=== PATIENT | female | born 1985 | race Caucasian/White ===

== ENCOUNTER 2017-11-16 11:10 | Emergency (ER) | payer OTHER, MEDICAID ==
[~2017-11-16] VITALS: Ht 160 cm; Wt 81.7 kg
[~2017-11-16 11:10] MED LIST: ADDERALL 20 MG20 M1 PO; BACTRIM DS TAB1 EACH PO; CLONAZEPAM 1 MG1 M1 PO; IBUPROFEN 800800 M1 PO; MACROBID 100 M100 M1 PO; METFORMIN HCL500 MG PO; NEURONTIN250 MG/5 M PO; NORCO 5-325 TA1 EAC1 PO; NORCO 5-325 TA1 EACH PO; OXYCODONE HCL 55 MG PO; PHENERGAN 25 MG25 M1 PO; PYRIDIUM100 M1 PO; VICOPROFEN 2001 EACH PO; VISTARIL 25 MG25 M1 PO; XANAX 0.5 MG0.5 M1 PO; ZPAK PO
[2017-11-16 11:17] VITALS: BP 135/81
[2017-11-16] MEDS ORDERED: CLONAZEPAM 0.50.5 M1 PO (11:20)
[2017-11-16] MEDS ORDERED: HYDROCHLOROTHIA25 M2 PO (11:20)
[2017-11-16] MEDS ORDERED: VICTOZA0.6 MG/0.1 SUBQ (11:21)
[2017-11-16] MEDS ORDERED: GLIPIZIDE 10 MG10 MG PO (11:21)
[2017-11-16] MEDS ORDERED: SUBOXONE 12 MG1 EACH TRANSDERM (11:21)
[2017-11-16] MEDS ORDERED: ZYRTEC 10 MG TA10 MG PO (11:23)
[2017-11-16] MEDS ORDERED: PREDNISONE 20 M20 M1 PO (11:23)
== END 2017-11-16 11:33 | disposition home or self-care (01) ==
LOC: M.ERS 11:10
DX: T78.40XA Allergy, unspecified, initial encounter (principal); X58.XXXA Exposure to other specified factors, initial encounter; F90.9 Attention-deficit hyperactivity disorder, unspecified type; Z88.0 Allergy status to penicillin; Z88.1 Allergy status to other antibiotic agents

== ENCOUNTER 2018-10-23 12:02 | Emergency (ER) | payer OTHER, MEDICAID ==
[~2018-10-23] VITALS: Ht 160 cm; Wt 97.5 kg
[~2018-10-23 12:02] MED LIST changes: +CLONAZEPAM 0.50.5 M1 PO; +GLIPIZIDE 10 MG10 MG PO; +HYDROCHLOROTHIA25 M2 PO; +PREDNISONE 20 M20 M1 PO; +SUBOXONE 12 MG1 EACH TRANSDERM; +VICTOZA0.6 MG/0.1 SUBQ; +ZYRTEC 10 MG TA10 MG PO
[2018-10-23] MEDS ORDERED: GLIPIZIDE 10 MG10 MG PO (12:21)
[2018-10-23] MEDS ORDERED: BYDUREON P2 MG/0.65 SUBQ (12:22)
[2018-10-23] MEDS ORDERED: KLONOPIN1 MG PO (12:22)
[2018-10-23] MEDS ORDERED: LIPITOR10 MG PO (12:23)
[2018-10-23] MEDS ORDERED: KEFLEX500 M1 PO (13:02)
[2018-10-23 13:22] VITALS: BP 121/70
== END 2018-10-23 13:23 | disposition home or self-care (01) ==
LOC: M.ERS 12:02
DX: J02.9 Acute pharyngitis, unspecified (principal); N80.9 Endometriosis, unspecified; F32.9 Major depressive disorder, single episode, unspecified; F90.9 Attention-deficit hyperactivity disorder, unspecified type; F41.9 Anxiety disorder, unspecified; G89.29 Other chronic pain; Z88.0 Allergy status to penicillin; Z88.1 Allergy status to other antibiotic agents

== ENCOUNTER 2019-04-13 13:28 | Emergency (ER) | payer OTHER, MEDICAID ==
[~2019-04-13] VITALS: Ht 160 cm; Wt 77.1 kg
[~2019-04-13 13:28] MED LIST changes: +BYDUREON P2 MG/0.65 SUBQ; +KEFLEX500 M1 PO; +KLONOPIN1 MG PO; +LIPITOR10 MG PO
[2019-04-13] MEDS ORDERED: TRULICITY0.75 MG/0. IM (13:49)
[2019-04-13] MEDS ORDERED: PHENTERMINE H37.5 MG PO (13:50)
[2019-04-13] MEDS ORDERED: IBUPROFEN 800800 M1 PO (13:51)
[2019-04-13] MEDS ORDERED: [UNRECOGNIZED DRUG - OTHER] PO (13:51)
[2019-04-13] MEDS ORDERED: PHENERGAN 25 MG25 M1 PO (13:52)
[2019-04-13] MEDS ORDERED: FLONASE 0.05%50 MCG NASAL (14:02)
[2019-04-13] MEDS ORDERED: HYDROCODON-ACE1 EAC7 PO (14:38)
[2019-04-13] MEDS ORDERED: KEFLEX500 M1 PO (14:38)
[2019-04-13 15:02] VITALS: BP 154/95
== END 2019-04-13 15:04 | disposition home or self-care (01) ==
LOC: M.ERS 13:28
DX: J02.9 Acute pharyngitis, unspecified (principal); K02.9 Dental caries, unspecified; F32.9 Major depressive disorder, single episode, unspecified; F90.9 Attention-deficit hyperactivity disorder, unspecified type; F41.9 Anxiety disorder, unspecified; F95.2 Tourette's disorder; G89.29 Other chronic pain; N80.9 Endometriosis, unspecified; Z88.1 Allergy status to other antibiotic agents; Z88.0 Allergy status to penicillin; Z85.9 Personal history of malignant neoplasm, unspecified

== ENCOUNTER 2019-04-26 17:26 | Emergency (ER) | payer OTHER, MEDICAID ==
[~2019-04-26] VITALS: Ht 160 cm; Wt 81.7 kg
[~2019-04-26 17:26] MED LIST changes: +FLONASE 0.05%50 MCG NASAL; +HYDROCODON-ACE1 EAC7 PO; +PHENTERMINE H37.5 MG PO; +TRULICITY0.75 MG/0. IM; +[UNRECOGNIZED DRUG - OTHER] PO
[2019-04-26 18:06] LABS: URINE BILIRUBIN NEGATIVE (Negative); URINE BLOOD 3+ (Negative); URINE COLOR YELLOW; URINE GLUCOSE-RANDOM 3+ (Negative); URINE KETONES NEGATIVE (Negative); URINE LEUKOCYTES-REFLEX 1+ (Negative); URINE PROTEIN 2+ (Negative); URINE UROBILINOGEN 0.2 E.U./dl (0.2-1.0)
[2019-04-26 18:08] LABS: URINE CLARITY CLOUDY; URINE NITRITE-REFLEX POSITIVE (Negative)
[2019-04-26 18:15] LABS: BACTERIA-REFLEX >30 Many /HPF (None Seen); CASTS None Seen /LPF (None Seen); CRYSTALS None Seen /LPF (None Seen); SQUAMOUS NONE SEEN /LPF (0-3); URINE RBC >20 Many /HPF (0-2); URINE WBC-REFLEX >25 Many /HPF (0-5)
[2019-04-26 18:33] LABS: ABSOLUTE BASOPHILS 0.1 thou/uL (0.0-0.2); ABSOLUTE LYMPHOCYTES 1.7 thou/uL (0.8-5.3); ABSOLUTE MONOCYTES 0.7 thou/uL (0.0-1.2); ABSOLUTE NEUTROPHILS 12.5 thou/uL (1.6-8.1); BASOPHILS 0.6 %; EOSINOPHILS 0.1 %; HEMATOCRIT 40.3 % (37.0-47.0); HEMOGLOBIN 13.7 gm/dL (12.0-15.0); LYMPHOCYTES 11.6 %; MCH 30.1 pg (26.0-34.0); MCHC 33.9 g/dL (28.0-37.0); MCV 88.5 fL (80.0-100.0); MONOCYTES 4.6 %; NUCLEATED RBCS 0 /100WBC; PLATELET COUNT* 323 thou/uL (150-400); POLYS 83.1 %; RBC 4.56 mil/uL (4.20-5.00); WBC 15.1 thou/uL (4.0-11.0)
[2019-04-26 18:43] LABS: CALCIUM 9.1 mg/dL (8.5-10.1); CREATININE 1.1 mg/dL (0.6-1.3)
[2019-04-26 18:48] LABS: TOTAL BILIRUBIN 1.1 mg/dL (<0.1-1.0); TOTAL PROTEIN 7.3 g/dL (6.4-8.2)
[2019-04-26] MEDS ORDERED: ZOVIRAX30 GM TOP (19:00)
[2019-04-26] MEDS ORDERED: CIPRO500 M1 PO (19:00)
[2019-04-26] MEDS ORDERED: ACYCLOVIR 800800 MG PO (19:00)
[2019-04-26] MEDS ORDERED: NABUMETONE 750750 M1 PO (19:22)
[2019-04-26] MEDS ORDERED: CITRATE OF MAG296 ML PO (19:22)
[2019-04-26 19:35] VITALS: BP 147/74
== END 2019-04-26 19:37 | disposition home or self-care (01) ==
LOC: M.ERS 17:26
PROVIDERS: Nurse Practitioner Family
DX: N39.0 Urinary tract infection, site not specified (principal); K59.00 Constipation, unspecified; N90.89 Other specified noninflammatory disorders of vulva and perineum; N80.9 Endometriosis, unspecified; F32.9 Major depressive disorder, single episode, unspecified; F90.9 Attention-deficit hyperactivity disorder, unspecified type; F41.9 Anxiety disorder, unspecified; E28.2 Polycystic ovarian syndrome; G89.29 Other chronic pain; F95.2 Tourette's disorder; Z85.44 Personal history of malignant neoplasm of other female genital organs; Z88.0 Allergy status to penicillin; Z88.1 Allergy status to other antibiotic agents

== ENCOUNTER 2019-09-30 10:11 | Emergency (ER) | payer OTHER, MEDICAID ==
[~2019-09-30] VITALS: Ht 160 cm; Wt 72.6 kg
[~2019-09-30 10:11] MED LIST changes: +ACYCLOVIR 800800 MG PO; +CIPRO500 M1 PO; +CITRATE OF MAG296 ML PO; +NABUMETONE 750750 M1 PO; +ZOVIRAX30 GM TOP
[2019-09-30 12:16] LABS: ABSOLUTE LYMPHOCYTES 2.5 thou/uL (0.8-5.3); ABSOLUTE MONOCYTES 0.2 thou/uL (0.0-1.2); BASOPHILS 0.3 %; EOSINOPHILS 0.4 %; HEMATOCRIT 39.3 % (37.0-47.0); HEMOGLOBIN 13.4 gm/dL (12.0-15.0); LYMPHOCYTES 20.9 %; MCH 29.7 pg (26.0-34.0); MCHC 33.9 g/dL (28.0-37.0); MCV 87.5 fL (80.0-100.0); MONOCYTES 2.1 %; MPV 10.4 fl. (7.2-11.1); NUCLEATED RBCS 0 /100WBC; PLATELET COUNT* 312 thou/uL (150-400); POLYS 76.3 %; RBC 4.49 mil/uL (4.20-5.00); RDW-CV 13.2 % (10.5-14.5); WBC 11.8 thou/uL (4.0-11.0)
[2019-09-30 12:35] LABS: ALBUMIN 3.2 g/dL (3.4-5.0); CALCIUM 7.7 mg/dL (8.5-10.1); CREATININE 0.8 mg/dL (0.6-1.3); POTASSIUM 4.1 mmol/L (3.5-5.1); TOTAL BILIRUBIN 0.4 mg/dL (<0.1-1.0); TOTAL PROTEIN 6.5 g/dL (6.4-8.2)
[2019-09-30] MEDS ORDERED: ONDANSETRON HCL4 M2 PO (12:59)
[2019-09-30] MEDS ORDERED: ZANAFLEX4 MG PO (12:59)
[2019-09-30] MEDS ORDERED: ATIVAN0.5 M1 PO (12:59)
[2019-09-30 13:52] VITALS: BP 131/77
== END 2019-09-30 13:53 | disposition home or self-care (01) ==
LOC: M.ERS 10:11
PROVIDERS: Nurse Practitioner Family
DX: F41.9 Anxiety disorder, unspecified (principal); R11.2 Nausea with vomiting, unspecified; G89.29 Other chronic pain; N80.9 Endometriosis, unspecified; F32.9 Major depressive disorder, single episode, unspecified; F90.9 Attention-deficit hyperactivity disorder, unspecified type; Z88.1 Allergy status to other antibiotic agents; Z88.0 Allergy status to penicillin

== ENCOUNTER 2020-01-27 23:54 | Inpatient (IN) | payer OTHER, MEDICAID ==
[~2020-01-27] VITALS: Ht 160 cm; Wt 84.4 kg
[~2020-01-27 23:54] MED LIST changes: +ATIVAN0.5 M1 PO; +ONDANSETRON HCL4 M2 PO; +ZANAFLEX4 MG PO
[2020-01-27 23:55] VITALS: BP 170/87
[2020-01-28 00:49] LABS: ABSOLUTE BASOPHILS 0.1 thou/uL (0.0-0.2); ABSOLUTE EOSINOPHILS 0.1 thou/uL (0.0-0.7); ABSOLUTE LYMPHOCYTES 3.4 thou/uL (0.8-5.3); ABSOLUTE MONOCYTES 0.6 thou/uL (0.0-1.2); ABSOLUTE NEUTROPHILS 5.7 thou/uL (1.6-8.1); BASOPHILS 0.6 %; EOSINOPHILS 1.5 %; HEMOGLOBIN 13.8 gm/dL (12.0-15.0); MCH 30.1 pg (26.0-34.0); MCHC 34.5 g/dL (28.0-37.0); MCV 87.3 fL (80.0-100.0); MONOCYTES 6.3 %; MPV 10.5 fl. (7.2-11.1); NUCLEATED RBCS 0 /100WBC; PLATELET COUNT* 404 thou/uL (150-400); POLYS 57.6 %; RBC 4.58 mil/uL (4.20-5.00); RDW-CV 13.4 % (10.5-14.5)
[2020-01-28 01:28] LABS: CALCIUM 8.9 mg/dL (8.5-10.1); CREATININE 1.2 mg/dL (0.6-1.3); POTASSIUM 3.9 mmol/L (3.5-5.1)
[2020-01-28 01:33] LABS: ALBUMIN 3.4 g/dL (3.4-5.0); TOTAL BILIRUBIN 0.8 mg/dL (<0.1-1.0); TOTAL PROTEIN 8.1 g/dL (6.4-8.2)
[2020-01-28 01:59] LABS: URINE BILIRUBIN NEGATIVE (Negative); URINE BLOOD TRACE (Negative); URINE CLARITY CLEAR; URINE COLOR STRAW; URINE GLUCOSE-RANDOM 3+ (Negative); URINE KETONES NEGATIVE (Negative); URINE LEUKOCYTES-REFLEX NEGATIVE (Negative); URINE NITRITE-REFLEX NEGATIVE (Negative); URINE PROTEIN NEGATIVE (Negative); URINE SPECIFIC GRAVITY <= 1.005 (1.005-1.030); URINE UROBILINOGEN 0.2 E.U./dl (0.2-1.0)
[2020-01-28 02:06] LABS: AMP/METHAMP POSITIVE (Negative); BARBITURATES Negative (Negative); BENZODIAZEPINES Negative (Negative); COCAINE Negative (Negative); METHADONE Negative (Negative); OPIATES Negative (Negative); PCP Negative (Negative); THC Negative (Negative)
[2020-01-28 04:45] VITALS: BP 139/83
--- NOTE | 2020-01-28 05:46 | NUR ---
PATIENT ARRIVED FROM ER TO ROOM 101. PT SPEAKS CONSTANTLY AND SWIFTLY AND IS UNABLE TO ANSWER QUESTIONS DIRECTED TO HER. PT IS POOR HISTORIAN. PT SAID SHE WANTS TO TAKE ANTIBIOTICS TODAY AND WANTS TO GO HOME TOMORROW. PT UP FROM ER WITH A SANDWICH IN HAND ASKING FOR A BOXED LUNCH BEFORE GETTING OF CART AND IN BED. PT UNABLE TO FOLLOW SIMPLE COMMANDS. ASSESSMENT COMPLETED BUT INFORMATION PT GAVE KEPT CHANGING QUICKLY. PT ORIENTED TO ROOM/POLICIES. WILL CONTINUE TO MONITOR.
[2020-01-28 07:35] VITALS: BP 152/94
--- NOTE | 2020-01-28 17:08 | NUR ---
PT.SLEEPING SOUNDLY WHEN CM WENT IN TO SEE HER. DID NOT AWAKEN. HAD TELE PSYCH CONSULT THIS AFTERNOON AND RECOMMENDATIONS AND REPORT ON CHART. ROXANE HUNG WILL NOTIFY OF RECOMMENDATIONS. CM WILL SEE PT.IN AM.
--- NOTE | 2020-01-28 17:51 | NUR ---
PT A&OX4 VSS. PT UP AD NANETTE, GAIT STEADY. PT ACCUCHECK, BUT CONTINUES TO REFUSE INSULIN THIS SHIFT. PT CLONAZEPAM DOSAGE ADJUSTED BY DR MALDONADO. IV TO R WRIST PATENT, REINFORCED WITH COBAN. RECORDS REQUESTED FROM [facility], PAPERWORK PLACED TO FRONT OF PT CHART. TELE-PSYCH CONSULT THIS SHIFT WELL, THIS REPORT ALSO PLACED TO FRONT OF PT CHART. DR MALDONADO PAGES TO INFORM HER THAT THESE REPORTS HAD ARRIVED. THIS PT CONTINUES TO BE HYPERVERBAL. PT CONTINUES TO REQUEST MORE FOOD, PT WANTS TO GO TO [employer] MACHINE, BUT PT RE-EDUCATED REGARDING INFECTION CONTROL. PT INITIALLY REFUSED HAVING HER WOUNDS DRESSED. PT EDUCATED REGARDING INFECTION CONTROL AT THIS TIME WELL. PT ASKED IF SHE COULD LEAVE FOR A LITTLE WHILE AND JUST COME BACK, PT WAS INFORMED THIS WAS AGAINST HOSPITAL POLICY AND WOULD BE CONSIDERED LEAVING AMA. IV ABX TX CONTINUES, WOUND CARE AND ID CONSULTED. PT SLEEPING WHEN DINNER ARRIVES, THIS NURSE WOKE PT WITH SOME DIFFICULTY FOR PT TO EAT AND TAKE EVENING MEDICATION. PT EVENTUALLY BECAME MORE ALERT AND SAT UP TO EAT. PT RESTS IN ROOM WITH CALL LIGHT IN REACH. WILL CONTINUE TO MONITOR.
[2020-01-28 20:00] VITALS: BP 94/61
[2020-01-29] VITALS: BP 103/57
--- NOTE | 2020-01-29 04:25 | NUR ---
PATIENT LETHARGIC ENTIRE SHIFT UNTIL ABOUT 0300 WHEN LAB CAME TO DRAW BLOOD. PT WOULD OPEN EYES AND MAKE YES/NO RESPONSE THEN GO BACK TO SLEEP. PT IS NOW AWAKE ASKING FOR FOOD. PT IS IMPULSIVE BUT USING CALL LIGHT APPROPRIATELY. PT UP WITH STANDBY TO BATHROOM. ANTIBIOTICS INFUSING PER DR ORDER. FREQUENTLY USED ITEMS AND CALL LIGHT WITHIN REACH. SIDERAILS UPX3 AND BED ALARM ON.
[2020-01-29 07:50] VITALS: BP 104/66
[2020-01-29 08:12] LABS: HEMATOCRIT 34.1 % (37.0-47.0); MCH 29.8 pg (26.0-34.0); MCHC 33.9 g/dL (28.0-37.0); MCV 87.9 fL (80.0-100.0); MPV 10.2 fl. (7.2-11.1); RBC 3.88 mil/uL (4.20-5.00); RDW-CV 13.5 % (10.5-14.5); WBC 9.5 thou/uL (4.0-11.0)
[2020-01-29 08:14] LABS: HEMOGLOBIN 11.5 gm/dL (12.0-15.0)
[2020-01-29 08:41] LABS: ALBUMIN 2.6 g/dL (3.4-5.0); CALCIUM 7.9 mg/dL (8.5-10.1); CREATININE 0.9 mg/dL (0.6-1.3); MAGNESIUM 1.8 mg/dL (1.8-2.4); POTASSIUM 3.7 mmol/L (3.5-5.1); TOTAL BILIRUBIN 0.4 mg/dL (<0.1-1.0); TOTAL PROTEIN 6.5 g/dL (6.4-8.2)
--- NOTE | 2020-01-29 10:00 | NUR ---
Nutrition: Pt admitted with wounds on LE. Seen for wounds. H/o ADHD, DM noncompliance with meds, tourettes. CHO controlled diet ordered. Pt eating 100% with good appetite, asking for extra food. Wt is at usual, 186#. BG 168, albumin 2.6. RX: glipizide, vanc. Purulent wound on LE. RD will order Kamran for wound healing. Otherwise, mild nutrition risk.
--- NOTE | 2020-01-29 10:35 | CON ---
[address] [address] CONSULTATION Name: SAULOLUIS Akshat Room: [address] IN ..#: [id number] Admission: 01/28/20 Attend Phys: Cuco Rae MD Discharge: Date of : 83 Report #: [id number] THIS REPORT FOR: //name// cc: Physician not on staff Physician not on staff ~ THIS REPORT FOR: //name// CC: VINI Rae Physician staff DATE OF SERVICE: 01/28/2020 INFECTIOUS DISEASE CONSULTATION ATTENDING PHYSICIAN: Dr. Smith. REASON FOR EVALUATION: Bilateral lower extremity wounds complicated by infection, also cellulitic type process. HISTORY OF PRESENT ILLNESS: Chart reviewed, patient examined. This is a 34-year-old who has got a fairly significant history given her age, apparently has some history of Tourette's, anxiety, polycystic ovary syndrome and diabetes mellitus. It is difficult to ascertain details of her history. She is quite verbal and tends to be somewhat tangential. When redirected, she does admit to bilateral lower extremity pain. She believes this started within the last hours to day prior to admission. It is unclear whether she had an injury. Notes, she thinks it was worsened with soaking of Epsom salts and questioned whether she was bitten by a spider as well. She notes that she has opposed to take insulin. She does take Trulicity, but has been out though. On initial evaluation, she has a negative test. Lactic acid was mildly elevated at 2.8. She has been empirically started on therapy with ceftriaxone, vancomycin. She denies significant systemic illness, no fevers. She states her appetite has generally been good. No pulmonary or gastrointestinal related complaints. ALLERGIES: PENICILLINS, CEPHALOSPORINS, MACROLIDES. CURRENT MEDICATIONS: Include atorvastatin, enoxaparin, vancomycin, levetiracetam, glipizide, hydrochlorothiazide, famotidine, ceftriaxone, tizanidine, fluconazole, ibuprofen, p.r.n. analgesics. Apparently is refusing the insulin. PAST MEDICAL HISTORY: As described above, endometriosis, history of anxiety, depression, ADHD, Tourette's, polycystic ovary syndrome, gastritis, history of seizures, [place] [address] CONSULTATION Name: LUIS VERNON Room: [address]#: [id number] Admission: 01/28/20 Attend Phys: Cuco Rae MD Discharge: Date of : 83 Report #: [id number] SOCIAL HISTORY: Otherwise, unrevealing. FAMILY HISTORY: Noncontributory. REVIEW OF SYSTEMS: As above, otherwise unremarkable. PHYSICAL EXAMINATION: GENERAL: She is hyperverbal, she continuously speaks, appears reasonably well nourished. She has mild distress. VITAL SIGNS: Temperature 98.3, pulse 97, respirations 16, blood pressure 139/83. SKIN: Warm, dry, no rashes. HEENT: Normocephalic. Extraocular muscles intact. NECK: Supple. LUNGS: Generally clear to auscultation. Somewhat diminished. HEART: Regular. Borderline tachycardic. I do not appreciate murmur. ABDOMEN: Obese, soft, nontender. There are no peritoneal signs. EXTREMITIES: Bilateral lower extremity has dressings in place. I did review the photographs taken in the chart. GENITOURINARY: Deferred. RECTAL: Deferred. LABORATORY DATA: CBC: White count of 10.0, H and H 13.8 and 40.0, platelets of 404. Electrolytes: Sodium 134, potassium 3.9, chloride 100, bicarbonate 25, anion gap of 9, BUN and creatinine 14 and 1.2, glucose of 308. LFTs unremarkable. Albumin of 3.4. Total protein of 8.1, estimated GFR of 51. Lactic acid of 2.8. ECG qualitative is negative. Urinalysis otherwise unremarkable. Positive drug screen for amphetamine, methamphetamine. Ankle x-ray showed no acute fracture and tib-fib showed some soft tissue swelling without fracture. Blood cultures sterile thus far. Lactic acid of 2.0, down from 2.8. ASSESSMENT AND PLAN: Bilateral lower extremity wounds. The patient with uncontrolled diabetes mellitus. Certainly, there is an inflammatory component. We will continue empiric antimicrobial therapy, try to collect a culture if possible. Wound care as prescribed. I worry given her opposition to insulin that diabetes will continue to be uncontrolled and the lead to additional complications, both infectious as well as noninfectious. Noted, Psychiatry had been consulted to see if there is some interventions that could be helpful. Continue to monitor expectantly. <ELECTRONICALLY SIGNED> By: Khari Bello MD 01/29/20 1035 [id number] Bello MD /nt
[2020-01-29 15:42] VITALS: BP 136/84
--- NOTE | 2020-01-29 17:50 | NUR ---
SPOKE WITH PT. SHE WAS ALERT AND ORIENTED. STATED SHE HAS A ROOMATE AND BOYFRIEND THAT SHE LIVES WITH IN A [place]. SHE HAS A CANE THAT SHE USES AT TIMES. SHE SEES FOR PSYCHIATARY AT [facility]. HX OF NON COMPLIANCE. MEETING CUT SHORT PT.HAD TO GET UP TO BATHROOM. SHE PLANS TO RETURN HOME AT DISCHARGE.
--- NOTE | 2020-01-29 18:41 | NUR ---
PATIENT RESTING IN BED. PATIENT IS UP AD NANETTE IN ROOM. PATIENT REFUSED DRESSINGS TO WOUNDS BY THIS NURSE AND WOUND CARE NURSE. PATIENT HAS COMPLAINTS OF PAIN WITH PARTIAL RELIEF OF PAIN WITH MEDICATION. PATIENT HAS GOOD APPETITE. PATIENT DENIES ANY NEEDS AT THIS TIME. CALL LIGHT WITHIN REACH.
--- NOTE | 2020-01-30 03:56 | NUR ---
PATIENT SLEPT ENTIRE SHIFT. PT STIRS EASILY AND ANSWERS APPROPRIATELY. PT REFUSED NEW IV ON DAY SHIFT AND NEW IV STARTED AROUND 0300 BY [employer]. PT WITH ANTIBIOTICS INFUSING PER DR ORDER. PT UP TO BATHROOM AND VOIDS YELLOW URINE. PT DID NOT REQUEST PAIN MEDICATION. FREQUENTLY USED ITEMS AND CALL LIGHT WITHIN REACH. SIDERAILS UPX2. WILL CONTINUE TO MONITOR.
--- NOTE | 2020-01-30 08:56 | NUR ---
WOUND NURSE: ATTEMPTED TO SEE PATIENT YESTEDAY AT 1615, BUT PATIENT REFUSED STATING SHE JUST WANTED TO GO TAKE A SHOWER. AGAIN ATTEMPTED TO SEE PATIENT THIS MORNING FOR WOUND ASSESSMENT AND POT, BUT SHE AGAIN REFUSED STATING SHE WANTS TO BE LEFT ALONE TO SLEEP. I AGREED TO REVISIT HER ONE MORE TIME THIS AFTERNOON AND SHE STATED OK.
[2020-01-30 09:05] VITALS: BP 106/57
--- NOTE | 2020-01-30 15:35 | NUR ---
WOUND NURSE: PATIENT SEEN FOR WOUNDS ON BLE R/T INFECTION. LEFT LOWER LEG AND FOOT MEASURES 6.0 X 2.5 X 0.1 CM AND PRESENTS A CLUSTER OF LESIONS WITH INTACT BROWN SCABS AND NO DRAINAGE. PERIWOUND IS REDDENED AND WARM TO TOUCH AND SLIGHTLY EDEMATOUS. PATIENT REPORTS LESS PAIN AND MORE ITCHING. RIGHT DREW MEASURES 2.0 X 1.5 X 0.1, CONTAINS INTACT BROWN SCAB, NO DRAINAGE, NO REDNESS OR WARMTH. CLEANSED WOUNDS WITH SOAP & WATER, RINSED WITH WATER, THEN PATTED DRY. APPLIED OPTIFOAM GENTLE AG, THEN WRAPPED WITH 4 INCH CONFORMING GAUZE, THEN SECURED WITH PAPER TAPE. DRESSING MAY REMAIN FOR UP TO 5 TO 7 DAYS. PATIENT INSTRUCTED ON REPORTABLE SIGNS AND SYMPTOMS, MEASURES TO PROMOTE HEALING AND PREVENT COMPLICATIONS, NUTRIENT DENSE DIET WITH ADDITIONAL PROTEINS AND AND GOOD GLUCOSE CONTROL. PATIENT STATES SHE UNDERSTANDS.
[2020-01-30 16:00] VITALS: BP 147/90
--- NOTE | 2020-01-30 17:56 | NUR ---
PATIENT RESTING IN BED. PATIENT IS UP AD LIBIN ROOM. PATIENT HAS COMPLAINTS OF PAIN WITH PARTIAL RELIEF WITH MEDICATION. PATIENT SEEN BY WOUND CARE NURSE THIS AFTERNOON AND DID ALLOW PLACEMENT OF DRESSINGS TO WOUNDS. PATIENT HAS EXCELLENT APPETITE. PATIENT REFUSES INSULIN. PATIENT DENIES ANY NEEDS AT THIS TIME.
[2020-01-30 19:50] VITALS: BP 137/82
--- NOTE | 2020-01-31 06:14 | NUR ---
PT ALERT AND ORIENTED. PT SLEPT WELL THIS SHIFT. MEDS GIVEN PER EMAR. PT REFUSED INSULIN THIS SHIFT. PAIN MED GIVEN X1. DRESSINGS TO BLE C/D/I. PT HAD ICE CREAMS THIS SHIFT. PT UP AD NANETTE. SEIZURE PRECAUTIONSIN PLACE. CALL LIGHT WITHIN REACH. HOURLY ROUNDINGS MADE. WILL CONTINUE TO MONITOR.
[2020-01-31 08:00] VITALS: BP 98/57
[2020-01-31] MEDS ORDERED: METFORMIN HCL500 M3 PO (12:15)
[2020-01-31] MEDS ORDERED: GLYBURIDE 5 MG T5 M1 PO (12:27)
[2020-01-31] MEDS ORDERED: CLONAZEPAM 1 MG1 M1 PO (12:27)
[2020-01-31] MEDS ORDERED: ULTRAM 50MG TAB50 MG PO (12:27)
[2020-01-31] MEDS ORDERED: KEFLEX500 M1 PO (13:09)
[2020-01-31 13:13] VITALS: BP 98/57
--- NOTE | 2020-01-31 14:04 | NUR ---
WOUND NURSE: PATIENT DISCHARGING TODAY AND HER STAFF NURSE REQUESTED ASSISTANCE WITH WOUNDS. PATIENT SHOWERED EARLIER AND WASHED THE SCABS AWAY FROM THE WOUND BEDS. RIGHT TIBIAL WOUND MEASURES 2.0 X 1.5 X 0.1 CM; CONTAINS RED, NONGRANULATING TISSUE IN WOUND BED, SMALL AMOUNT OF SEROUSANGUINOUS DRAINAGE, SLIGHT PERIWOUND REDNESS, NO ODOR, PAINFUL TO TOUCH PER THE PATIENT. LEFT LEG WOUND MEASURES 6.0 X 2.5 X 0.1 CM, CONTAINS RED, NONGRANULATING TISSUE AND APPROXIMATELY 10% FIRMLY ADHERENT YELLOW OPAQUE EXUDATE IN THE WOUND BED. THERE IS PERIWOUND REDNESS AND WARMTH, BUT WITHOUT UNTOWARD CHANGE COMPARED TO YESTERDAY. CLEANSED WITH SOAP AND WATER, RINSED WITH WATER, THEN PATTED DRY. APPLIED OPTIFOAM GENTLE AG OVER EACH WOUND, WRAPPED WITH 4 INCH CONFORMING ROLL GAUE, THEN SECURED WITH TAPE. ALSO PATIENT WAS SCHEDULED TO BE SEEN IN THE WOUND CENTER NEXT MONDAY AT 10:[address] Noemi BOONE DO. PATIENT WAS INSTRUCTED ACCORDINGLY AND GIVEN AN APPOINTMENT CARD. PATIENT WAS INSTRUCTED ON CARE OF WOUNDS AND MEASURES TO PROMOTE HEALING AND PREVENT FURTHER COMPLICATIONS. PATIENT STATES SHE UNDERSTANDS.
[2020-01-31 14:42] VITALS: BP 98/57
--- NOTE | 2020-01-31 15:16 | NUR ---
RECEIVED REPORT FROM NEETA BETTS. ASSUMED PT CARE AROUND 0715. AM ASSESSMENT AND VITALS COMPLETED CHARTED. MEDS PER EMAR. PT NON COMPLIANT WITH INSULIN. DENIED PAIN THIS AM, BUT DID REPORT PAIN IN BILATERAL LEG WOUNDS THIS AFTERNOON WHEN THE WOUND RN WAS CHANGING THE DRESSINGS. PO PAIN MEDICATION GIVEN. DR DOBBS ROUNDED, DISCAHRGE ORDERS RECEIVED. DISCHARGE COMPLETED DOCUMENTED. DISCHARGE SUMMARY, CARE NOTES AND SCRIPTS GONE OVER AND GIVEN TO THE PT, PT COMMUNICATES UNDERSTANDING. PT SELF DISCONTINUED IV. ALL BELONGINGS GATHERED AND SENT OUT WITH THE PT. PT REFUSED OUR CAB VOUCHER AND INSTEAD PT'S MOTHER ARRANGED FOR [employer] TRANSPORT. PT LEFT UNIT WALKING WITH NURSING STAFF. PT LEFT HOSPITAL IN WHITE CAR WITH [employer]BER TRANSPORT STAFF.
== END 2020-01-31 15:24 | disposition home or self-care (01) | DRG 603 ==
LOC: M.ERS 23:54 → M.ORTHSURG 01-28 02:54 → M.TBA-ER 01-28 02:54 → M.ORTHSURG 01-28 05:21
PROVIDERS: Emergency Medicine; Internal Medicine; ADMIT Internal Medicine
DX: L03.116 Cellulitis of left lower limb (principal); F11.20 Opioid dependence, uncomplicated; F32.9 Major depressive disorder, single episode, unspecified; L03.115 Cellulitis of right lower limb; F41.9 Anxiety disorder, unspecified; G89.29 Other chronic pain; E11.65 Type 2 diabetes mellitus with hyperglycemia; F90.9 Attention-deficit hyperactivity disorder, unspecified type; Z88.1 Allergy status to other antibiotic agents; Z88.0 Allergy status to penicillin; Z88.8 Allergy status to other drugs, medicaments and biological substances; Z79.4 Long term (current) use of insulin; Z91.19 Patient's noncompliance with other medical treatment and regimen

== ENCOUNTER → 2020-02-06 | Outpatient (CLI) | payer OTHER, MEDICAID ==
[~2020-02-06] MED LIST changes: +GLYBURIDE 5 MG T5 M1 PO; +METFORMIN HCL500 M3 PO; +ULTRAM 50MG TAB50 MG PO
== END ==
LOC: M.WC 05:04
PROVIDERS: ATTEND Family Medicine
DX: T63.331A Toxic effect of venom of brown recluse spider, accidental (unintentional), initial encounter (principal); L03.116 Cellulitis of left lower limb; E11.9 Type 2 diabetes mellitus without complications; G89.29 Other chronic pain; F32.9 Major depressive disorder, single episode, unspecified; F11.29 Opioid dependence with unspecified opioid-induced disorder; F17.200 Nicotine dependence, unspecified, uncomplicated; F41.9 Anxiety disorder, unspecified; Z85.89 Personal history of malignant neoplasm of other organs and systems; Y92.89 Other specified places as the place of occurrence of the external cause

== ENCOUNTER 2020-10-14 10:58 | Emergency (ER) | payer OTHER, MEDICAID ==
[~2020-10-14] VITALS: Ht 160 cm; Wt 64.9 kg
[2020-10-14] MEDS ORDERED: BACTRIM DS TAB1 EACH PO ×2 (12:14→12:23)
[2020-10-14] MEDS ORDERED: KEFLEX500 M1 PO ×2 (12:14→12:23)
[2020-10-14 12:15] LABS: ABSOLUTE BASOPHILS 0.1 thou/uL (0.0-0.2); ABSOLUTE EOSINOPHILS 0.4 thou/uL (0.0-0.7); ABSOLUTE LYMPHOCYTES 2.9 thou/uL (0.8-5.3); ABSOLUTE MONOCYTES 0.5 thou/uL (0.0-1.2); ABSOLUTE NEUTROPHILS 12.5 thou/uL (1.6-8.1); BASOPHILS 0.4 %; EOSINOPHILS 2.7 %; HEMATOCRIT 44.6 % (37.0-47.0); HEMOGLOBIN 14.6 gm/dL (12.0-15.0); LYMPHOCYTES 17.7 %; MCHC 32.8 g/dL (28.0-37.0); MCV 88.3 fL (80.0-100.0); MONOCYTES 3.3 %; MPV 9.7 fl. (7.2-11.1); NUCLEATED RBCS 0 /100WBC; PLATELET COUNT* 533 thou/uL (150-400); POLYS 75.9 %; RBC 5.05 mil/uL (4.20-5.00); RDW-CV 13.7 % (10.5-14.5); WBC 16.5 thou/uL (4.0-11.0)
[2020-10-14] MEDS ORDERED: IBUPROFEN 800800 M1 PO ×2 (12:20→12:23)
[2020-10-14 12:26] LABS: CALCIUM 9.5 mg/dL (8.5-10.1); CREATININE 1.2 mg/dL (0.6-1.3); POTASSIUM 3.8 mmol/L (3.5-5.1)
[2020-10-14 12:32] LABS: ALBUMIN 3.3 g/dL (3.4-5.0); TOTAL BILIRUBIN 0.4 mg/dL (<0.1-1.0); TOTAL PROTEIN 7.7 g/dL (6.4-8.2)
[2020-10-14 12:57] VITALS: BP 122/73
== END 2020-10-14 12:59 | disposition home or self-care (01) ==
LOC: M.ERS 10:58
PROVIDERS: Nurse Practitioner Family
DX: S80.921A Unspecified superficial injury of right lower leg, initial encounter (principal); S70.921A Unspecified superficial injury of right thigh, initial encounter; S60.931A Unspecified superficial injury of right thumb, initial encounter; S60.940A Unspecified superficial injury of right index finger, initial encounter; F41.9 Anxiety disorder, unspecified; E11.9 Type 2 diabetes mellitus without complications; I10 Essential (primary) hypertension; N80.9 Endometriosis, unspecified; Z88.0 Allergy status to penicillin; Z88.1 Allergy status to other antibiotic agents; F90.9 Attention-deficit hyperactivity disorder, unspecified type; X58.XXXA Exposure to other specified factors, initial encounter; Y93.89 Activity, other specified; Y99.8 Other external cause status

== ENCOUNTER 2020-12-06 22:19 | Emergency (ER) | payer OTHER, MEDICAID ==
[~2020-12-06] VITALS: Ht 160 cm; Wt 77.1 kg
[2020-12-07] MEDS ORDERED: KEFLEX500 M1 PO (00:40)
[2020-12-07] MEDS ORDERED: IBUPROFEN 800800 MG PO (00:40)
[2020-12-07 00:48] VITALS: BP 125/62
== END 2020-12-07 00:50 | disposition home or self-care (01) ==
LOC: M.ERS 22:19
DX: K04.1 Necrosis of pulp (principal); K08.89 Other specified disorders of teeth and supporting structures; N80.9 Endometriosis, unspecified; G89.29 Other chronic pain; E11.9 Type 2 diabetes mellitus without complications; I10 Essential (primary) hypertension; F17.210 Nicotine dependence, cigarettes, uncomplicated; Z88.0 Allergy status to penicillin; Z88.1 Allergy status to other antibiotic agents

== ENCOUNTER 2021-03-08 07:01 | Emergency (ER) | payer OTHER, MEDICAID ==
[~2021-03-08] VITALS: Ht 160 cm; Wt 54.4 kg
[~2021-03-08 07:01] MED LIST changes: +IBUPROFEN 800800 MG PO
[2021-03-08] MEDS ORDERED: KLONOPIN1 MG PO (08:00)
[2021-03-08 08:06] VITALS: BP 165/85
== END 2021-03-08 08:06 | disposition home or self-care (01) ==
LOC: M.ERS 07:01
DX: F41.9 Anxiety disorder, unspecified (principal); Z76.0 Encounter for issue of repeat prescription; F32.9 Major depressive disorder, single episode, unspecified; E11.9 Type 2 diabetes mellitus without complications; I10 Essential (primary) hypertension; Z88.0 Allergy status to penicillin; Z88.1 Allergy status to other antibiotic agents; Z79.899 Other long term (current) drug therapy

== ENCOUNTER 2021-04-28 09:59 | Emergency (ER) | payer OTHER, MEDICAID ==
[~2021-04-28] VITALS: Ht 160 cm; Wt 54.4 kg
[2021-04-28] MEDS ORDERED: BUTALB-APAP-CA1 EACH PO ×2 (10:32→13:00)
[2021-04-28] MEDS ORDERED: QUETIAPINE FUM100 MG PO (10:33)
[2021-04-28] MEDS ORDERED: IBUPROFEN 800800 M1 PO ×2 (10:33→13:02)
[2021-04-28] MEDS ORDERED: ATIVAN2 MG PO (10:33)
[2021-04-28] MEDS ORDERED: SEROQUEL 50 MG50 MG PO (13:02)
[2021-04-28 13:13] VITALS: BP 150/95
== END 2021-04-28 13:13 | disposition home or self-care (01) ==
LOC: M.ERS 09:59
DX: R51.9 Headache, unspecified (principal); M79.10 Myalgia, unspecified site; Z76.0 Encounter for issue of repeat prescription; F32.9 Major depressive disorder, single episode, unspecified; F90.9 Attention-deficit hyperactivity disorder, unspecified type; F41.9 Anxiety disorder, unspecified; E11.9 Type 2 diabetes mellitus without complications; I10 Essential (primary) hypertension; Z79.899 Other long term (current) drug therapy; Z88.0 Allergy status to penicillin; Z88.1 Allergy status to other antibiotic agents

== ENCOUNTER 2021-05-07 01:12 | Emergency (ER) | payer OTHER, MEDICAID ==
[~2021-05-07] VITALS: Ht 160 cm; Wt 54.4 kg
[~2021-05-07 01:12] MED LIST changes: +ATIVAN2 MG PO; +BUTALB-APAP-CA1 EACH PO; +QUETIAPINE FUM100 MG PO; +SEROQUEL 50 MG50 MG PO
[2021-05-07 01:52] LABS: URINE BILIRUBIN NEGATIVE (Negative); URINE BLOOD NEGATIVE (Negative); URINE CLARITY CLEAR; URINE COLOR YELLOW; URINE GLUCOSE-RANDOM NEGATIVE (Negative); URINE KETONES NEGATIVE (Negative); URINE LEUKOCYTES-REFLEX NEGATIVE (Negative); URINE NITRITE-REFLEX NEGATIVE (Negative); URINE PROTEIN NEGATIVE (Negative); URINE UROBILINOGEN 0.2 E.U./dl (0.2-1.0)
[2021-05-07 02:01] LABS: AMP/METHAMP POSITIVE (Negative); BARBITURATES Negative (Negative); BENZODIAZEPINES Negative (Negative); COCAINE Negative (Negative); METHADONE Negative (Negative); OPIATES Negative (Negative); PCP Negative (Negative); THC Negative (Negative)
[2021-05-07 02:38] VITALS: BP 146/111
== END 2021-05-07 02:39 | disposition home or self-care (01) ==
LOC: M.ERS 01:12
PROVIDERS: Emergency Medicine
DX: O99.322 Drug use complicating pregnancy, second trimester (principal); F15.10 Other stimulant abuse, uncomplicated; O24.312 Unspecified pre-existing diabetes mellitus in pregnancy, second trimester; E11.9 Type 2 diabetes mellitus without complications; O10.912 Unspecified pre-existing hypertension complicating pregnancy, second trimester; O99.342 Other mental disorders complicating pregnancy, second trimester; F32.9 Major depressive disorder, single episode, unspecified; F90.9 Attention-deficit hyperactivity disorder, unspecified type; Z3A.20 20 weeks gestation of pregnancy; Z79.899 Other long term (current) drug therapy; Z88.1 Allergy status to other antibiotic agents; Z88.0 Allergy status to penicillin

== ENCOUNTER 2021-06-21 00:22 | Emergency (ER) | payer OTHER, MEDICAID ==
[~2021-06-21] VITALS: Ht 160 cm; Wt 54.4 kg
[2021-06-21 00:32] VITALS: BP 187/113
[2021-06-21] MEDS ORDERED: PERIDEX 0.12%473 M1 PO (02:04)
[2021-06-21] MEDS ORDERED: DOXYCYCLINE 10100 MG PO (02:04)
== END 2021-06-21 02:06 | disposition left against medical advice (07) ==
LOC: M.ERS 00:22
DX: K08.89 Other specified disorders of teeth and supporting structures (principal); K02.9 Dental caries, unspecified; F32.9 Major depressive disorder, single episode, unspecified; F41.9 Anxiety disorder, unspecified; E11.9 Type 2 diabetes mellitus without complications; I10 Essential (primary) hypertension; Z79.899 Other long term (current) drug therapy; Z88.0 Allergy status to penicillin; Z88.1 Allergy status to other antibiotic agents

== ENCOUNTER 2021-07-04 09:30 | Emergency (ER) | payer OTHER, MEDICAID ==
[~2021-07-04] VITALS: Ht 160 cm; Wt 59.0 kg
[~2021-07-04 09:30] MED LIST changes: +DOXYCYCLINE 10100 MG PO; +PERIDEX 0.12%473 M1 PO
[2021-07-04] MEDS ORDERED: PERCOCET 10-321 EAC1 PO (09:41)
[2021-07-04 09:55] VITALS: BP 178/109
== END 2021-07-04 09:56 | disposition home or self-care (01) ==
LOC: M.ERS 09:30
DX: K08.89 Other specified disorders of teeth and supporting structures (principal); F32.9 Major depressive disorder, single episode, unspecified; F41.9 Anxiety disorder, unspecified; E11.9 Type 2 diabetes mellitus without complications; I10 Essential (primary) hypertension; F90.9 Attention-deficit hyperactivity disorder, unspecified type; Z76.0 Encounter for issue of repeat prescription; Z79.899 Other long term (current) drug therapy; Z88.0 Allergy status to penicillin; Z88.6 Allergy status to analgesic agent